=== PATIENT | male | born 1950 | race Caucasian/White ===

== ENCOUNTER 2020-07-19 14:02 | Outpatient (RCR) | payer MEDICARE, BC ==
[~2020-07-19 14:02] MED LIST: CETIRIZINE; HYZAAR 12.5 MG-1 TA1 PO; ZANTAC 2525 MG PO
== END 2020-10-17 | disposition home or self-care (01) ==
LOC: WSST
DX: R13.10 Dysphagia, unspecified (principal)

== ENCOUNTER → 2020-08-01 | Outpatient (CLI) | payer MEDICARE, BC | LOC: COL.RAD 08:03 | DX: R13.10 Dysphagia, unspecified (principal) ==

== ENCOUNTER 2023-06-10 08:34 | Outpatient (RCR) | payer MEDICARE, BC | END 2023-06-14 | disposition home or self-care (01) | LOC: WSST | DX: R13.13 Dysphagia, pharyngeal phase (principal) ==

== ENCOUNTER 2023-07-01 09:00 | Outpatient (RCR) | payer MEDICARE, BC | END 2023-07-15 | disposition home or self-care (01) | LOC: WSST | DX: R13.10 Dysphagia, unspecified (principal) ==

== ENCOUNTER 2023-07-09 11:00 | Outpatient (RCR) | payer MEDICARE, BC | END 2023-07-15 | disposition home or self-care (01) | LOC: WSOT | DX: G56.01 Carpal tunnel syndrome, right upper limb (principal); R29.898 Other symptoms and signs involving the musculoskeletal system ==

== ENCOUNTER 2023-08-03 09:00 | Outpatient (RCR) | payer MEDICARE, BC | END 2023-08-13 | disposition home or self-care (01) | LOC: WSOT | DX: G56.01 Carpal tunnel syndrome, right upper limb (principal) ==

== ENCOUNTER 2024-04-13 14:04 | Outpatient (RCR) | payer MEDICARE, BC | END 2024-04-14 | disposition home or self-care (01) | LOC: COL.CR | DX: Z02.89 Encounter for other administrative examinations (principal) ==